=== PATIENT | female | born 1940 | race Caucasian/White ===

== ENCOUNTER → 2023-08-10 10:47 | Outpatient (REF) | payer MEDICARE, OTHER, SELFPAY ==
[2023-08-10 11:55] LABS: % Basophils 0.9 % (0-2); % Eosinophils 3.7 % (0-6); % Immature Granulocytes 0.3 % (0-0.5); % Lymphocytes 29.5 % (20.5-51.1); % Monocytes 11.7 % (1.7-9.3); % Neutrophils 53.9 % (42.2-75.2); Absolute Basophils 0.1 10^3/uL (0-0.2); Absolute Eosinophils 0.2 10^3/uL (0-0.7); Absolute Lymphocytes 1.9 10^3/uL (1.2-3.4); Absolute Monocytes 0.8 10^3/uL (0.1-0.6); Absolute Neutrophils 3.5 10^3/uL (1.4-6.5); Hematocrit 42.3 % (37.0-47.0); Hemoglobin 14.7 g/dL (12.0-16.0); Mean Corp Hgb Conc. 34.8 g/dL (33.0-37.0); Mean Corpuscular Hgb 32.6 pg (27.0-31.0); Mean Corpuscular Volume 93.8 fL (81.0-99.0); Mean Platelet Volume 9.2 fL (7.4-10.4); Nucleated Red Blood Cells % 0 %; Platelet Count 356 10^3/uL (130-400); Red Blood Cell Count 4.51 10^6/uL (4.20-5.40); Red Cell Dist. Width 12.9 % (11.5-14.5); White Blood Cell Count 6.5 10^3/uL (4.8-10.8)
[2023-08-10 12:07] LABS: ALT (SGPT) 22 U/L (0-35); AST (SGOT) 27 U/L (14-36); Albumin 4.5 g/dl (3.5-5.0); Alkaline Phosphatase 77 U/L (38-126); Blood Urea Nitrogen 18 mg/dl (7-17); Calcium 9.2 mg/dl (8.4-10.2); Carbon Dioxide 27 mmol/L (22-30); Chloride 102 mmol/L (98-107); Glucose 125 mg/dl (70-99); Magnesium 2.4 mg/dl (1.6-2.3); Sodium 136 mmol/L (135-145); Total Bilirubin 0.7 mg/dl (0.2-1.3); Total Protein 6.9 g/dl (6.3-8.2); eGFR > 60.00
== END ==
LOC: SDSPAT 10:47
PROVIDERS: ATTENDING PHYSICIAN Internal Medicine Cardiovascular Disease; FAMILY PHYSICIAN Internal Medicine; OTHER PHYSICIAN Internal Medicine Interventional Cardiology
DX: Z01.818 Encounter for other preprocedural examination (principal); I47.10 Supraventricular tachycardia, unspecified
CPT/HCPCS: 36415; 80053; 83735; 85025; 93005

== ENCOUNTER → 2023-08-19 08:48 | Day surgery (SDC) | payer MEDICARE, OTHER, SELFPAY ==
[2023-08-10 10:49] VITALS: BMI 22.3
[2023-08-19] VITALS (12 sets, daily range): BP systolic 140–178; BP diastolic 66–132; BMI 22.5
[2023-08-19 09:52] LABS: Glucose - Point of Care 123 mg/dl (70-99)
[2023-08-19 12:52] LABS: Glucose - Point of Care 108 mg/dl (70-99)
--- NOTE | 2023-08-19 17:25 | ITS.CL.ABL ---
Clinical Program Manager - Ablation
Ablation
Procedure Report:
Primary Physician: Francisca Roberts DO
Primary Marine Chronometer Assembler: Candace Grant MD
Procedure Date: 08/19/2023
Procedure
Electrophysiology Study with SVT ablation
Left atrial recording / pacing
IV drug for arrhythmia induction
Intracardiac Echocardiography (ICE)
Patient History
Patient is a pleasant 83-year-old female with a past medical history significant for hypertension, diabetes mellitus type 2, valvular heart disease, left bundle branch block dyslipidemia, and paroxysmal supraventricular tachycardia. Patient is
experienced multiple episodes of recurrent narrow complex tachycardia requiring emergency room visit termination with adenosine and vagal maneuvers. Following development of left bundle branch block, patient also experienced 2 similar SVT requiring
emergency room visit. SVT EKG demonstrates a short RP tachycardia.
Method
After informed consent was obtained, the patient was brought to the EP lab in a post-absorptive, non-sedated state. A peripheral IV was in place. Continuous electrocardiography, blood pressure and pulse oximetry monitoring was initiated and
cardioversion / defibrillator electrodes were positioned on the chest in an AP orientation. A 'time-out' was called. Conscious sedation was administered with the assistance of the anesthesia services, and local anesthesia was given at the femoral
vein access sites.
Using modified Seldinger technique, vascular access was achieved and sheaths were placed. Multipolar catheters were advanced to the coronary sinus, His bundle recording position, right ventricle, and high right atrium. Following the determination
of baseline conduction intervals, comprehensive EP study was performed. Pacing and recording from the RA, RV, HBE, and CS / LA was performed.
For arrhythmia details, see below.
Fluoroscopy time:
19.1 min; 29.25 mGy
Total RF time:
3.11 min
Estimated Blood Loss
5-10 mL
Complications
None
At the end of the procedure, all catheters and sheaths were removed and hemostasis was assured with Vascade and manual pressure. The patient was returned to the recovery area in stable condition.
Access Sites:
Left Femoral Vein: 2 sheaths (7 Fr, 6 Fr upsized to a 7 Fr)
Right Femoral Vein: 2 sheaths (8 Fr upsized to 10 Fr, 6 Fr upsized to a 11.5 Fr)
Baseline Intervals:
Rhythm: Sinus Rhythm
LA: 214 ms
AH: 156 ms
HV: 51 ms
QRS: 133 ms
QT: 452 ms
QTc: 552 ms
A-A: 686 ms
R-R: 686 ms
Post-Procedure Intervals:
LA: 214 ms
AH: 166 ms
HV: 53 ms
QRS: 136 ms
QT: 457 ms
QTc: 449 ms
A-A: 1035 ms
R-R: 1035 ms
AV Conduction:
- AVWB at 380 ms; post ablation 500 ms
- VAWB at 530 ms
Refractory Periods
- AERP 600/290 ms; 550/220 ms (1 isuprel); 520/210 ms (2 isuprel); post ablation 600/420 ms
Procedure Synopsis:
The patient entered the room in sinus rhythm. Access was obtained as noted above. Initially, decapolar catheter was placed in the coronary sinus. There was inability to place quadripolar catheters due to complex anatomy under fluoroscopy and
electroanatomic mapping. Therefore, the right-sided 8 Swedish sheath was upsized to a 10 Swedish sheath and intracardiac echocardiography (ICE) was utilized to better visualize the anatomy. Again, there was inability to pass quadripolar catheters
into the hiss or RV positions due to significant eustachian ridge and eustachian valve with small/narrow inflow and RV. Therefore, the decapolar catheter was placed across the tricuspid valve due to steer ability providing an atrial, HIS, and RV
signal. Appropriate thresholds were obtained from this catheter. Next, the 6 Swedish left-sided sheath was upsized to a 7 Swedish sheath and an additional decapolar catheter was advanced into the coronary sinus position. In the right groin, a
quadripolar catheter was placed through the 6 Swedish sheath into the HRA position next, a comprehensive electrophysiology study was performed. Patient did not demonstrate dual bernardino physiology with atrial extrastimuli at baseline, with
isoproterenol at 1 mcg, 2 mcg, or 3 mcg. During washout period no dual bernardino physiology was noted however induction was performed and successful with burst pacing at 310 ms with a tachycardia cycle length of 360 ms. The VA time in tachycardia was
less than 70 ms (29 ms). Next, pacing maneuvers were performed to confirm the diagnosis. With RV pacing, manifest overdrive pacing yielded a VAV response indicative of AVNRT. The post pacing interval was 490 ms yielding a PPI minus TCL of 130 ms.
The SA minus VA time was 100 ms. Overdrive pacing terminated the tachycardia. With confirmed diagnosis of typical AVNRT based upon surface ECG, tachycardia characteristics, and pacing maneuvers, our attention was turned to ablation for this
tachycardia. The HRA catheter was removed from the 6 Swedish sheath which was then upsized to the 11.5 Swedish steerable sheath. Careful attention was placed on the presence of the HIS signal and marked accordingly on the electroanatomic map using
our decapolar catheter. A [employer] DF curve ablation catheter was advanced through the steerable sheath to the level of the floor of the coronary sinus with a EGM signal showing a 1:3 - 1:10 ratio of A to V signal and with no HIS on ablation
channel. Ablation was performed at 25 W with careful monitoring of impedance, temperature; stable junctional rhythm was noted during ablation without loss of AV conduction. Following ablation, AV conduction remained intact through the completion of
the case. Re-induction was attempted at baseline and again at isuprel at 3 mcg. Patient remained non-inducible for SVT/AVNRT. Catheters were safely removed and hemostasis was achieved as noted above. Interval measurements were once more recorded as
noted above.
Recommendations
- Anticipate same day discharge if patient meeting metrics and stable for DC
- Bedrest with straight-leg precautions
- Continue home medications as indicated
- Follow-up in office in 4-6 weeks
Keo Melvin DO
Clinical Cardiac Electrophysiology
cc: Francisca Roberts DO; Candace Grant MD
== END | disposition home or self-care (01) ==
LOC: CATH 08:48
PROVIDERS: ATTENDING PHYSICIAN Internal Medicine Cardiovascular Disease; FAMILY PHYSICIAN Internal Medicine; OTHER PHYSICIAN Internal Medicine Interventional Cardiology
DX: I47.10 Supraventricular tachycardia, unspecified (principal); I44.7 Left bundle-branch block, unspecified; I10 Essential (primary) hypertension; E11.9 Type 2 diabetes mellitus without complications; E78.5 Hyperlipidemia, unspecified; I38 Endocarditis, valve unspecified
CPT/HCPCS: C1730; C1894; C1766 ×2; C2630; C1892; 82962; 86850; 86900; 86901; 93005; 93653; C1760